=== PATIENT | male | born 1965 | race Caucasian/White ===

== ENCOUNTER → 2019-03-09 | Outpatient (CLI) | payer OTHER ==
[~2019-03-09] MED LIST: SINCALIDE (KINEVAC) 5 MCG ONE
== END | disposition home or self-care (01) ==
LOC: PETCFH 07:32
PROVIDERS: ATTEND Family Medicine
DX: R10.13 Epigastric pain (principal)
CPT/HCPCS: 78227; A9537; J2805

== ENCOUNTER 2019-04-14 14:54 | Outpatient (CLI) | payer OTHER ==
[2019-04-14] MEDS ORDERED: ASCO10004 PO (15:36)
[2019-04-14] MEDS ORDERED: RED600CA2 PO (15:36)
[2019-04-14] MEDS ORDERED: CLIN40CR2 TP (15:36)
[2019-04-14] MEDS ORDERED: FISH OIL PO (15:36)
[2019-04-14] MEDS ORDERED: MULT-516 PO (15:36)
[2019-04-14] MEDS ORDERED: CHOL3000 PO (15:36)
[2019-04-14] MEDS ORDERED: CLIN50GE2 TP (15:36)
[2019-04-14] MEDS ORDERED: TRETINOIN TP (15:36)
[2019-04-14] MEDS ORDERED: GLUC15006 PO (15:36)
== END 2019-04-14 23:59 | disposition home or self-care (01) ==
LOC: STAR 14:54
PROVIDERS: ATTEND Surgery Vascular Surgery
DX: Z02.9 Encounter for administrative examinations, unspecified (principal)